=== PATIENT | male | born 1960 | race Caucasian/White ===

== ENCOUNTER 2018-05-21 14:48 | Emergency (ER) | payer MEDICAID ==
[~2018-05-21] VITALS: Ht 170.2 cm; Wt 66.3 kg
[~2018-05-21 14:48] MED LIST: CIPR250T27 PO; DAPT500V6 IV; ERTA1VIA IV; FLUC200T PO; HYDR-3241 PO; LEVO250T23 PO; LEVO750T26 PO; METR250T PO; METR500T PO; METR500T8 PO; MICA100V3 IV; MORP-52 PO; None per pt; ONDA4TAB7 PO; OXYC-302 PO; PANT40TA3 PO; SULF-169 PO
[2018-05-21] MEDS ORDERED: SODIUM CHLORIDE FLUSH 10ML SYR IVF ONE (15:30)
[2018-05-21] MEDS ORDERED: SODIUM CHLORIDE 0.9% 1,000ML IVBOLUS ONE (15:30)
[2018-05-21 15:48] LABS: BASOPHILS # (AUTO) 0.04 x10^3/uL (0-0.1); BASOPHILS % (AUTO) 1 % (0-1); EOSINOPHILS # (AUTO) 0.18 x10^3/uL (0-0.4); EOSINOPHILS % (AUTO) 3 % (1-7); LYMPHOCYTES # (AUTO) 2.54 x10^3/uL (1-3.4); LYMPHOCYTES % (AUTO) 34 % (22-44); MD NO; MEAN CORPUSCULAR HGB CONC 33.4 g/dL (33.2-36.2); MEAN CORPUSCULAR VOLUME 86.7 fL (81-97); MEAN PLATELET VOLUME 7.9 fL (7.4-10.4); MONOCYTES # (AUTO) 0.44 x10^3/uL (0.2-0.8); MONOCYTES % (AUTO) 6 % (2-9); NEUTROPHILS # (AUTO) 4.17 x10^3/uL (1.8-6.8); NEUTROPHILS % (AUTO) 57 % (42-75); PLATELET COUNT 228 x10^3/uL (130-400); RED BLOOD COUNT 5.07 x10^6/uL (4.38-5.82); RED CELL DISTRIBUTION WIDTH 13.8 % (9.4-14.8)
[2018-05-21 15:57] LABS: ALANINE AMINOTRANSFERASE 20 U/L (12-78); ALBUMIN 3.4 g/dL (3.4-5.0); ANION GAP 7 mmol/L (5-15); CALCIUM 8.8 mg/dL (8.5-10.1); CHLORIDE 112 mmol/L (98-107); CREATININE 1.19 mg/dL (0.7-1.3)
[2018-05-21 16:00] LABS: ALKALINE PHOSPHATASE 126 U/L (45-117); BILIRUBIN,TOTAL 0.4 mg/dL (0.2-1.0); TOTAL PROTEIN 7.1 g/dL (6.4-8.2)
[2018-05-21] MEDS ORDERED: OMNIPAQUE 350 MG/ML, 100ML BOTTLE ONE (17:37)
[2018-05-21 19:42] VITALS: BP 140/84
== END 2018-05-21 19:48 | disposition home or self-care (01) ==
LOC: ED 16:26
DX: K94.09 Other complications of colostomy (principal)
CPT/HCPCS: 36415; 74177; 80053; 85025; 99285; J7030; Q9967

== ENCOUNTER 2018-10-06 17:01 | Inpatient (IN) | payer MEDICAID ==
[~2018-10-06] VITALS: Ht 170.2 cm; Wt 70.2 kg
[2018-10-06] MEDS ORDERED: SODIUM CHLORIDE FLUSH 10ML SYR IVF ONE (18:00)
[2018-10-06] MEDS ORDERED: VANCOMYCIN PER PHARMACY MC PRN ×2 (18:00→21:00)
[2018-10-06] MEDS ORDERED: SODIUM CHLORIDE 0.9% 1,000ML IVBOLUS ONE (18:00)
[2018-10-06] MEDS ORDERED: VANCOMYCIN 1,200 MG in SODIUM CHLORIDE 0.9% 250 ML IV ONE (18:00)
[2018-10-06 18:21] LABS: MEAN CORPUSCULAR HEMOGLOBIN 29.3 pg (27.5-34.5); MEAN CORPUSCULAR HGB CONC 33.5 g/dL (33.2-36.2); MEAN CORPUSCULAR VOLUME 87.4 fL (81-97); MEAN PLATELET VOLUME 7.1 fL (7.4-10.4); PLATELET COUNT 606 x10^3/uL (130-400); RED BLOOD COUNT 5.19 x10^6/uL (4.38-5.82)
[2018-10-06 18:33] LABS: ALBUMIN 2.8 g/dL (3.4-5.0); ANION GAP 5 mmol/L (5-15); CALCIUM 9.2 mg/dL (8.5-10.1); CHLORIDE 105 mmol/L (98-107); CREATININE 1.13 mg/dL (0.7-1.3)
[2018-10-06 18:42] LABS: MD YES
[2018-10-06 18:44] LABS: <PLATELET ESTIMATE> INCREASED; ANISOCYTOSIS 1+; BAND#(MANUAL) 1.09 x10^3/uL; BANDS%(MANUAL) 5 % (0-7); LYMPH#(MANUAL) 1.74 x10^3/uL (1-3.4); LYMPHS% (MANUAL) 8 % (22-44); MONOS#(MANUAL) 0.87 x10^3/uL (0.3-2.7); MONOS% (MANUAL) 4 % (2-9); SEG#(MANUAL) 18.01 x10^3/uL (1.8-6.8); SEGS% (MANUAL) 83 % (42-75)
[2018-10-06 18:45] LABS: <PLT MORPHOLOGY> NORMAL PLT MORPH
[2018-10-06] MEDS ORDERED: OMNIPAQUE 350 MG/ML, 100ML BOTTLE ONE (19:15)
[2018-10-06] MEDS ORDERED: HYDROcodone/APAP 5/325 TABLET PO PRN (21:00)
[2018-10-06] MEDS ORDERED: ONDANSETRON 2MG/ML, 2ML IVPush PRN (21:00)
[2018-10-06] MEDS ORDERED: ACETAMINOPHEN 325 MG TABLET PO PRN (21:00)
[2018-10-06] MEDS: ENOXAPARIN 40 MG/0.4 ML SQ SCH (21:00)
[2018-10-06] MEDS ORDERED: morphine SULFATE 10 MG/ML, 1ML IVPush PRN (21:00)
[2018-10-06] MEDS ORDERED: hydrALAzine 20 MG/ML, 1ML IVPush PRN (21:00)
[2018-10-06] MEDS ORDERED: PHARMACOKINETIC CONSULTATION MC ONE (22:00)
[2018-10-06] MEDS ORDERED: PHARMACOKINETIC MONITORING MC PRN (22:00)
[2018-10-07 00:54] VITALS: BP 91/60
[2018-10-07] MEDS: SODIUM CHLORIDE 0.9% 1,000 ML IV SCH ×3 (01:10→16:05)
[2018-10-07] MEDS: AMPICILLIN/SULBACTAM 1,500 MG in SODIUM CHLORIDE 0.9% 50 ML IV SCH ×2 (01:10→09:00)
[2018-10-07 05:17] LABS: MICROSCOPIC NOT IND
[2018-10-07 05:19] LABS: CULTURE INDICATED? NO
[2018-10-07 05:26] LABS: BASOPHILS # (AUTO) 0.03 x10^3/uL (0-0.1); BASOPHILS % (AUTO) 0 % (0-1); EOSINOPHILS # (AUTO) 0.08 x10^3/uL (0-0.4); EOSINOPHILS % (AUTO) 1 % (1-7); LYMPHOCYTES # (AUTO) 3.08 x10^3/uL (1-3.4); LYMPHOCYTES % (AUTO) 30 % (22-44); MD NO; MEAN CORPUSCULAR HGB CONC 33.2 g/dL (33.2-36.2); MEAN CORPUSCULAR VOLUME 87.4 fL (81-97); MONOCYTES # (AUTO) 0.68 x10^3/uL (0.2-0.8); MONOCYTES % (AUTO) 7 % (2-9); NEUTROPHILS # (AUTO) 6.51 x10^3/uL (1.8-6.8); NEUTROPHILS % (AUTO) 63 % (42-75); PLATELET COUNT 516 x10^3/uL (130-400); RED CELL DISTRIBUTION WIDTH 13.3 % (9.4-14.8)
[2018-10-07 05:26] LABS: CHLORIDE 106 mmol/L (98-107)
[2018-10-07 05:34] LABS: ALANINE AMINOTRANSFERASE 14 U/L (12-78); ALBUMIN 2.3 g/dL (3.4-5.0); ALKALINE PHOSPHATASE 96 U/L (45-117); ANION GAP 10 mmol/L (5-15); BILIRUBIN,TOTAL 0.4 mg/dL (0.2-1.0); CALCIUM 8.4 mg/dL (8.5-10.1); CREATININE 1.16 mg/dL (0.7-1.3)
[2018-10-07 07:11] VITALS: BP 95/61
[2018-10-07] MEDS: VANCOMYCIN 1,200 MG in SODIUM CHLORIDE 0.9% 250 ML IV SCH ×2 (08:12→20:11)
[2018-10-07] MEDS: PIPERACILLIN/TAZO/PMX 3.375GM 50 ML IV SCH ×3 (10:30→22:11)
[2018-10-07 15:02] VITALS: BP 101/66
[2018-10-07 19:06] VITALS: BP 106/65
[2018-10-07] MEDS: ENOXAPARIN 40 MG/0.4 ML SQ SCH (20:14)
[2018-10-08] MEDS: SODIUM CHLORIDE 0.9% 1,000 ML IV SCH ×3 (01:20→17:08)
[2018-10-08 01:45] VITALS: BP 97/61
[2018-10-08] MEDS: PIPERACILLIN/TAZO/PMX 3.375GM 50 ML IV SCH ×4 (04:16→23:13)
[2018-10-08 05:36] LABS: BASOPHILS # (AUTO) 0.01 x10^3/uL (0-0.1); BASOPHILS % (AUTO) 0 % (0-1); EOSINOPHILS % (AUTO) 1 % (1-7); LYMPHOCYTES # (AUTO) 1.34 x10^3/uL (1-3.4); LYMPHOCYTES % (AUTO) 19 % (22-44); MD NO; MEAN CORPUSCULAR HEMOGLOBIN 28.9 pg (27.5-34.5); MEAN CORPUSCULAR HGB CONC 33.2 g/dL (33.2-36.2); MEAN CORPUSCULAR VOLUME 87.2 fL (81-97); MONOCYTES # (AUTO) 0.34 x10^3/uL (0.2-0.8); MONOCYTES % (AUTO) 5 % (2-9); NEUTROPHILS % (AUTO) 75 % (42-75); PLATELET COUNT 410 x10^3/uL (130-400); RED BLOOD COUNT 4.45 x10^6/uL (4.38-5.82); RED CELL DISTRIBUTION WIDTH 13.1 % (9.4-14.8)
[2018-10-08 05:48] LABS: CALCIUM 8.1 mg/dL (8.5-10.1); CHLORIDE 111 mmol/L (98-107)
[2018-10-08 05:52] LABS: ANION GAP 7 mmol/L (5-15); CREATININE 0.77 mg/dL (0.7-1.3)
[2018-10-08 07:23] VITALS: BP 97/67
[2018-10-08] MEDS: VANCOMYCIN 1,200 MG in SODIUM CHLORIDE 0.9% 250 ML IV SCH ×2 (08:07→20:05)
[2018-10-08 12:56] VITALS: BP 100/62
[2018-10-08 19:30] VITALS: BP 107/68
[2018-10-08] MEDS: ENOXAPARIN 40 MG/0.4 ML SQ SCH (20:05)
[2018-10-09] MEDS: SODIUM CHLORIDE 0.9% 1,000 ML IV SCH ×4 (01:55→23:00)
[2018-10-09 01:58] VITALS: BP 106/66
[2018-10-09] MEDS: PIPERACILLIN/TAZO/PMX 3.375GM 50 ML IV SCH ×4 (05:07→23:00)
[2018-10-09 07:03] VITALS: BP 116/77
[2018-10-09] MEDS: VANCOMYCIN 1,200 MG in SODIUM CHLORIDE 0.9% 250 ML IV SCH ×2 (08:13→19:45)
[2018-10-09 12:20] VITALS: BP 112/70
[2018-10-09 19:15] VITALS: BP 109/20
[2018-10-09] MEDS: ENOXAPARIN 40 MG/0.4 ML SQ SCH (19:45)
[2018-10-10 01:50] VITALS: BP 109/63
[2018-10-10] MEDS: PIPERACILLIN/TAZO/PMX 3.375GM 50 ML IV SCH ×2 (05:00→11:00)
[2018-10-10] MEDS: SODIUM CHLORIDE 0.9% 1,000 ML IV SCH (05:02)
[2018-10-10 07:08] VITALS: BP 105/73
[2018-10-10] MEDS: VANCOMYCIN 1,200 MG in SODIUM CHLORIDE 0.9% 250 ML IV SCH (08:00)
[2018-10-10] MEDS ORDERED: DOXY100C2 PO (08:29)
== END 2018-10-10 11:11 | disposition home or self-care (01) | DRG 602 ==
LOC: ED 18:20 → SUATTDRO 20:06 → EDIP 20:16 → 3NE 20:39
PROVIDERS: ADMIT Hospitalist; ATTEND Hospitalist
DX: L03.317 Cellulitis of buttock (principal); E43 Unspecified severe protein-calorie malnutrition; D64.9 Anemia, unspecified; F15.10 Other stimulant abuse, uncomplicated; G40.909 Epilepsy, unspecified, not intractable, without status epilepticus; G80.9 Cerebral palsy, unspecified; Z68.24 Body mass index [BMI] 24.0-24.9, adult; Z91.19 Patient's noncompliance with other medical treatment and regimen; Z93.3 Colostomy status; Z74.01 Bed confinement status
CPT/HCPCS: 36415; 74177; 80048; 80053; 80202; 81003; 82040; 83605; 83735; 84100; 84145; 85025; 87040; 90656; 96365; 96366; 99291; G0378; J2543; J3370; Q9967; J0295; J7030; J7050

== ENCOUNTER 2019-06-01 01:41 | Inpatient (IN) | payer MEDICAID ==
[~2019-06-01] VITALS: Ht 170.2 cm; Wt 76.5 kg
[~2019-06-01 01:41] MED LIST changes: +DOXY100C2 PO; +METR-90 PO; -METR500T8 PO
[2019-06-01 02:30] LABS: BASOPHILS # (AUTO) 0.03 x10^3/uL (0-0.1); BASOPHILS % (AUTO) 0 % (0-1); EOSINOPHILS # (AUTO) 0.04 x10^3/uL (0-0.4); EOSINOPHILS % (AUTO) 0 % (1-7); LYMPHOCYTES # (AUTO) 1.94 x10^3/uL (1-3.4); LYMPHOCYTES % (AUTO) 16 % (22-44); MD NO; MEAN CORPUSCULAR HEMOGLOBIN 27.9 pg (27.5-34.5); MEAN CORPUSCULAR HGB CONC 32.4 g/dL (33.2-36.2); MEAN CORPUSCULAR VOLUME 85.9 fL (81-97); MEAN PLATELET VOLUME 7.6 fL (7.4-10.4); MONOCYTES # (AUTO) 0.61 x10^3/uL (0.2-0.8); MONOCYTES % (AUTO) 5 % (2-9); NEUTROPHILS # (AUTO) 9.64 x10^3/uL (1.8-6.8); NEUTROPHILS % (AUTO) 79 % (42-75); PLATELET COUNT 269 x10^3/uL (130-400); RED BLOOD COUNT 5.84 x10^6/uL (4.38-5.82); RED CELL DISTRIBUTION WIDTH 14.3 % (9.4-14.8)
[2019-06-01] MEDS ORDERED: SODIUM CHLORIDE FLUSH 10ML SYR IVF ONE (02:30)
[2019-06-01 02:42] LABS: ALANINE AMINOTRANSFERASE 16 U/L (12-78); ALBUMIN 3.2 g/dL (3.4-5.0); ANION GAP 8 mmol/L (5-15); CALCIUM 8.7 mg/dL (8.5-10.1); CHLORIDE 108 mmol/L (98-107); CREATININE 1.31 mg/dL (0.7-1.3)
[2019-06-01 02:44] LABS: ALKALINE PHOSPHATASE 146 U/L (45-117); BILIRUBIN,TOTAL 0.7 mg/dL (0.2-1.0); TOTAL PROTEIN 7.9 g/dL (6.4-8.2)
--- NOTE | 2019-06-01 03:33 | NUR ---
GAVE PT URINE CUP FOR ORDRED UA. PT STATED, "OH, YOU'RE TRYING TO TEST ME FOR DRUGS". EXPLAINED TO PT DOC WANTS TO RUN UA NOT DRUG SCREEN. LABS AND BLOOD CULTURE DRAWN. PT STATED, "WITH ALL THIS BLOOD THEY'RE DRAWING, YOU DON'T NEED THE URINE." IV PLACED WITH ULTRASOUND. PT BACK FROM CT AT THIS TIME.
[2019-06-01] MEDS ORDERED: OMNIPAQUE 350 MG/ML, 100ML BOTTLE ONE (03:35)
--- NOTE | 2019-06-01 04:36 | NUR ---
REPORT OF PT FROM REDDY ZHONG AND ASSUMING CARE OF PT AT THIS TIME.
[2019-06-01] MEDS ORDERED: PIPERACILLIN/TAZO/PMX 3.375GM 0 ML ONE (04:48)
[2019-06-01] MEDS ORDERED: PIPERACILLIN/TAZO/PMX 3.375GM 50 ML ONE (04:49)
[2019-06-01] MEDS ORDERED: VANCOMYCIN PER PHARMACY MC PRN ×2 (05:00→05:30)
[2019-06-01] MEDS ORDERED: PIPERACILLIN/TAZO/PMX 3.375GM 50 ML IV ONE (05:00)
[2019-06-01] MEDS ORDERED: VANCOMYCIN 1,600 MG in SODIUM CHLORIDE 0.9% 250 ML IV ONE (05:00)
[2019-06-01] MEDS: PIPERACILLIN/TAZO/PMX 3.375GM 50 ML IV SCH ×3 (05:18→21:03)
[2019-06-01] MEDS ORDERED: hydrALAzine 20 MG/ML, 1ML IVPush PRN (05:30)
[2019-06-01] MEDS ORDERED: PHARMACOKINETIC MONITORING MC PRN (05:30)
[2019-06-01] MEDS ORDERED: ACETAMINOPHEN 325 MG TABLET PO PRN (05:30)
--- NOTE | 2019-06-01 06:09 | NUR ---
REPORT OF PT TO REDDY PRICE. ALL QUESTIONS ANSWERED. TECH PAGED FOR PT TRANSPORT. PT AND FAMILY VERBALIZE UNDERSTANDING OF ROOM ASSIGNMENT AND POC.
[2019-06-01 06:37] VITALS: BP 96/66
[2019-06-01 07:07] VITALS: BP 116/79
[2019-06-01] MEDS ORDERED: LIDOCAINE-MPF 1%, 5ML ONE (08:06)
[2019-06-01] MEDS ORDERED: MIDAZOLAM 1 MG/ML, 5ML ONE (08:10)
[2019-06-01] MEDS ORDERED: FENTANYL PF 100 MCG/2ML ONE (08:10)
[2019-06-01] MEDS ORDERED: VISIPAQUE 270 MG/ML, 50ML BOTTLE ONE (09:01)
[2019-06-01] MEDS: SODIUM CHLORIDE 0.9% 1,000 ML IV SCH ×3 (09:36→19:49)
[2019-06-01 14:50] VITALS: BP 102/66
[2019-06-01 16:31] LABS: MICROSCOPIC NOT IND
[2019-06-01 16:38] LABS: CULTURE INDICATED? NO
[2019-06-01 18:55] VITALS: BP 111/69
[2019-06-02 02:07] VITALS: BP 95/52
[2019-06-02] MEDS: PIPERACILLIN/TAZO/PMX 3.375GM 50 ML IV SCH ×3 (04:57→21:20)
[2019-06-02 05:19] LABS: ALBUMIN 2.4 g/dL (3.4-5.0); ANION GAP 4 mmol/L (5-15); CALCIUM 8.1 mg/dL (8.5-10.1); CHLORIDE 112 mmol/L (98-107)
[2019-06-02 05:24] LABS: ALANINE AMINOTRANSFERASE 11 U/L (12-78); ALKALINE PHOSPHATASE 108 U/L (45-117); BILIRUBIN,TOTAL 0.5 mg/dL (0.2-1.0); CREATININE 1.06 mg/dL (0.7-1.3); TOTAL PROTEIN 5.8 g/dL (6.4-8.2)
[2019-06-02] MEDS: VANCOMYCIN 1,600 MG in SODIUM CHLORIDE 0.9% 250 ML IV SCH (05:44)
[2019-06-02 06:09] LABS: BASOPHILS # (AUTO) 0.02 x10^3/uL (0-0.1); BASOPHILS % (AUTO) 0 % (0-1); EOSINOPHILS # (AUTO) 0.09 x10^3/uL (0-0.4); EOSINOPHILS % (AUTO) 2 % (1-7); LYMPHOCYTES # (AUTO) 1.58 x10^3/uL (1-3.4); LYMPHOCYTES % (AUTO) 25 % (22-44); MD NO; MEAN CORPUSCULAR HEMOGLOBIN 27.7 pg (27.5-34.5); MEAN CORPUSCULAR HGB CONC 32.4 g/dL (33.2-36.2); MEAN CORPUSCULAR VOLUME 85.6 fL (81-97); MEAN PLATELET VOLUME 7.6 fL (7.4-10.4); MONOCYTES # (AUTO) 0.67 x10^3/uL (0.2-0.8); MONOCYTES % (AUTO) 11 % (2-9); NEUTROPHILS # (AUTO) 4.01 x10^3/uL (1.8-6.8); NEUTROPHILS % (AUTO) 63 % (42-75); PLATELET COUNT 220 x10^3/uL (130-400); RED BLOOD COUNT 4.97 x10^6/uL (4.38-5.82); RED CELL DISTRIBUTION WIDTH 14.1 % (9.4-14.8)
[2019-06-02 08:00] VITALS: BP 111/61
[2019-06-02] MEDS: SODIUM CHLORIDE 0.9% 1,000 ML IV SCH (09:16)
[2019-06-02 13:35] VITALS: BP 114/68
[2019-06-02 20:28] VITALS: BP 95/62
[2019-06-03 02:00] VITALS: BP 112/70
[2019-06-03] MEDS: PIPERACILLIN/TAZO/PMX 3.375GM 50 ML IV SCH ×3 (05:00→21:46)
[2019-06-03 05:03] VITALS: BP 112/70
[2019-06-03] MEDS: VANCOMYCIN 1,600 MG in SODIUM CHLORIDE 0.9% 250 ML IV SCH (05:59)
[2019-06-03 07:53] VITALS: BP 110/72
[2019-06-03 08:59] LABS: HCT (SEDRATE) 45.6 % (39.2-51.8)
[2019-06-03 14:07] VITALS: BP 136/82
[2019-06-03] MEDS ORDERED: GADOBUTROL 10 MMOL/10 ML PFS ONE (17:29)
[2019-06-03 19:38] VITALS: BP 137/83
[2019-06-03] MEDS ORDERED: VANCOMYCIN 1,600 MG in SODIUM CHLORIDE 0.9% 250 ML IV SCH (22:00)
[2019-06-04 01:58] VITALS: BP 112/79
[2019-06-04 05:27] LABS: BASOPHILS # (AUTO) 0.04 x10^3/uL (0-0.1); BASOPHILS % (AUTO) 1 % (0-1); EOSINOPHILS # (AUTO) 0.15 x10^3/uL (0-0.4); EOSINOPHILS % (AUTO) 2 % (1-7); LYMPHOCYTES # (AUTO) 2.78 x10^3/uL (1-3.4); LYMPHOCYTES % (AUTO) 36 % (22-44); MD NO; MEAN CORPUSCULAR HEMOGLOBIN 28.6 pg (27.5-34.5); MEAN CORPUSCULAR HGB CONC 32.9 g/dL (33.2-36.2); MEAN PLATELET VOLUME 7.6 fL (7.4-10.4); MONOCYTES # (AUTO) 0.85 x10^3/uL (0.2-0.8); MONOCYTES % (AUTO) 11 % (2-9); NEUTROPHILS # (AUTO) 3.93 x10^3/uL (1.8-6.8); NEUTROPHILS % (AUTO) 51 % (42-75); PLATELET COUNT 293 x10^3/uL (130-400); RED BLOOD COUNT 5.77 x10^6/uL (4.38-5.82); RED CELL DISTRIBUTION WIDTH 13.8 % (9.4-14.8)
[2019-06-04] MEDS: PIPERACILLIN/TAZO/PMX 3.375GM 50 ML IV SCH ×3 (05:29→21:26)
[2019-06-04 05:40] LABS: ALBUMIN 2.9 g/dL (3.4-5.0); CALCIUM 9.2 mg/dL (8.5-10.1); CHLORIDE 109 mmol/L (98-107)
[2019-06-04 05:44] LABS: ALANINE AMINOTRANSFERASE 17 U/L (12-78); ALKALINE PHOSPHATASE 119 U/L (45-117); ANION GAP 6 mmol/L (5-15); BILIRUBIN,TOTAL 0.3 mg/dL (0.2-1.0); TOTAL PROTEIN 7.2 g/dL (6.4-8.2)
[2019-06-04 07:26] VITALS: BP 111/77
[2019-06-04 12:59] VITALS: BP 118/75
[2019-06-04 19:07] VITALS: BP 95/72
[2019-06-05 03:30] VITALS: BP 107/77
[2019-06-05] MEDS: PIPERACILLIN/TAZO/PMX 3.375GM 50 ML IV SCH ×2 (05:09→13:25)
[2019-06-05 07:30] VITALS: BP 115/81
[2019-06-05] MEDS ORDERED: ONDANSETRON 2MG/ML, 2ML IVPush PRN (09:30)
[2019-06-05 13:43] VITALS: BP 94/69
[2019-06-05 20:03] VITALS: BP 96/68
== END 2019-06-05 22:05 | disposition home or self-care (01) | DRG 871 ==
LOC: ED 01:57 → EDIP 04:50 → 4NOR 06:20
PROVIDERS: ADMIT Family Medicine; ATTEND Family Medicine
PROC: 0W2GX0Z Change Drainage Device in Peritoneal Cavity, External Approach (ICD-10-PCS; principal; 2019-06-01)
DX: A41.9 Sepsis, unspecified organism (principal); K65.1 Peritoneal abscess; N17.0 Acute kidney failure with tubular necrosis; T85.638A Leakage of other specified internal prosthetic devices, implants and grafts, initial encounter; E44.1 Mild protein-calorie malnutrition; T85.618A Breakdown (mechanical) of other specified internal prosthetic devices, implants and grafts, initial encounter; Y83.8 Other surgical procedures as the cause of abnormal reaction of the patient, or of later complication, without mention of misadventure at the time of the procedure; Y92.89 Other specified places as the place of occurrence of the external cause; Z68.26 Body mass index [BMI] 26.0-26.9, adult; E86.0 Dehydration; F17.210 Nicotine dependence, cigarettes, uncomplicated; G40.909 Epilepsy, unspecified, not intractable, without status epilepticus; G80.9 Cerebral palsy, unspecified; N20.0 Calculus of kidney; Z82.3 Family history of stroke; Z90.49 Acquired absence of other specified parts of digestive tract; Z93.3 Colostomy status
CPT/HCPCS: 36415; 49423; 50435; 72197; 74177; 80053; 80202; 81003; 83605; 85025; 85651; 86140; 87040; 87070; 87077; 87186; 87205; 96374; 96375; 99156; 99157; A9585; G0378; J2250; J2543; J3010; J3370; Q9966; Q9967; C1729; C1769; J7030; J7050

== ENCOUNTER 2020-02-01 08:06 | Inpatient (IN) | payer MEDICAID ==
[~2020-02-01] VITALS: Ht 172.7 cm; Wt 75.1 kg
--- NOTE | 2020-02-01 08:18 | NUR ---
PT BROUGHT IN BY [facility] FROM HOME FOR CHIEF COMPLAINT OF WORSENING ABD WOUND. SIGNIFICANT ABD HX SINCE 2011. HAD SURGERY WITH WOUND VAC PLACEMENT AT [facility] 01/01. [facility] ON [address] [address]- PT BROUGHT TO [facility]. PATIENT IS ALERT, ORIENTED, WARM AND DRY.
[2020-02-01] MEDS ORDERED: WARF5TAB PO (08:26)
[2020-02-01 08:55] LABS: BASOPHILS # (AUTO) 0.06 x10^3/uL (0-0.1); BASOPHILS % (AUTO) 0 % (0-1); EOSINOPHILS # (AUTO) 0.03 x10^3/uL (0-0.4); EOSINOPHILS % (AUTO) 0 % (1-7); LYMPHOCYTES # (AUTO) 1.41 x10^3/uL (1-3.4); LYMPHOCYTES % (AUTO) 11 % (22-44); MD NO; MEAN CORPUSCULAR HGB CONC 32.7 g/dL (33.2-36.2); MEAN CORPUSCULAR VOLUME 85.5 fL (81-97); MEAN PLATELET VOLUME 6.9 fL (7.4-10.4); MONOCYTES # (AUTO) 0.85 x10^3/uL (0.2-0.8); MONOCYTES % (AUTO) 7 % (2-9); NEUTROPHILS # (AUTO) 10.26 x10^3/uL (1.8-6.8); NEUTROPHILS % (AUTO) 81 % (42-75); PLATELET COUNT 399 x10^3/uL (130-400); RED BLOOD COUNT 4.41 x10^6/uL (4.38-5.82); RED CELL DISTRIBUTION WIDTH 16.5 % (9.4-14.8)
[2020-02-01] MEDS ORDERED: ONDANSETRON 2MG/ML, 2ML IVPush ONE (09:00)
[2020-02-01] MEDS ORDERED: SODIUM CHLORIDE FLUSH 10ML SYR IVF ONE (09:00)
[2020-02-01] MEDS ORDERED: ONDANSETRON 2MG/ML, 2ML ONE (09:01)
[2020-02-01] MEDS ORDERED: MORPHINE SULFATE 4 MG/ML, 1ML ONE ×2 (09:01→10:51)
[2020-02-01 09:06] LABS: ALANINE AMINOTRANSFERASE 23 U/L (12-78); ANION GAP 7 mmol/L (5-15); CALCIUM 8.7 mg/dL (8.5-10.1); CHLORIDE 111 mmol/L (98-107); CREATININE 0.87 mg/dL (0.7-1.3)
[2020-02-01 09:07] LABS: ALKALINE PHOSPHATASE 111 U/L (45-117); BILIRUBIN,TOTAL 0.4 mg/dL (0.2-1.0); TOTAL PROTEIN 7.3 g/dL (6.4-8.2)
[2020-02-01] MEDS: MORPHINE SULFATE 4 MG/ML, 1ML IVPush PRN ×2 (09:07→11:17)
--- NOTE | 2020-02-01 09:15 | NUR ---
SUPPLIES ORDERED, PT RESTING IN BED
[2020-02-01] MEDS ORDERED: PIPERACILLIN/TAZO/PMX 3.375GM 50 ML IV ONE (10:00)
--- NOTE | 2020-02-01 10:22 | NUR ---
[facility] HOSP AT BEDSIDE FOR EVALUATION
--- NOTE | 2020-02-01 10:57 | NUR ---
PT TO IMAGING.
[2020-02-01] MEDS ORDERED: ONDANSETRON ODT 4 MG PO PRN (11:00)
[2020-02-01] MEDS ORDERED: VANCOMYCIN PER PHARMACY MC PRN (11:00)
[2020-02-01] MEDS ORDERED: hydrALAzine 20 MG/ML, 1ML IVPush PRN (11:00)
[2020-02-01] MEDS ORDERED: ONDANSETRON 2MG/ML, 2ML IVPush PRN (11:00)
[2020-02-01] MEDS ORDERED: BACLOFEN 10 MG TABLET PO PRN (11:00)
[2020-02-01 11:01] LABS: INTERNATIONAL NORMALIZED RATIO 2.3 (0.93-1.1); PROTHROMBIN TIME 24.6 Seconds (9.6-11.5)
[2020-02-01] MEDS: NS + 20MEQ KCL 1,000 ML IV SCH ×2 (11:17→22:36)
--- NOTE | 2020-02-01 11:22 | NUR ---
report called to delia yuen
[2020-02-01] MEDS ORDERED: OMNIPAQUE 350 MG/ML, 100ML BOTTLE ONE (11:31)
[2020-02-01 11:45] VITALS: BP 106/74
[2020-02-01 11:55] VITALS: BP 105/74
[2020-02-01] MEDS: morphine SULFATE 10 MG/ML, 1ML IVPush PRN ×4 (12:09→22:54)
[2020-02-01] MEDS ORDERED: HEPARIN 5,000 UNITS/ML, 1ML IV ONE (12:30)
[2020-02-01] MEDS ORDERED: HEPARIN 5,000 UNITS/ML, 1ML IV PRN (12:30)
[2020-02-01] MEDS ORDERED: HEPARIN 25,000 UNITS/250ML PMX 250 ML IV PRN (12:30)
[2020-02-01] MEDS ORDERED: PHARMACOKINETIC MONITORING MC PRN (13:00)
[2020-02-01] MEDS ORDERED: PHARMACOKINETIC CONSULTATION MC ONE (13:00)
[2020-02-01 13:32] VITALS: BP 100/69
[2020-02-01] MEDS: VANCOMYCIN 1,400 MG in SODIUM CHLORIDE 0.9% 250 ML IV SCH (13:53)
[2020-02-01] MEDS: PIPERACILLIN/TAZO/PMX 3.375GM 50 ML IV SCH ×2 (17:08→22:58)
[2020-02-01 20:10] VITALS: BP 101/70
[2020-02-02] MEDS: VANCOMYCIN 1,400 MG in SODIUM CHLORIDE 0.9% 250 ML IV SCH ×2 (01:29→14:38)
[2020-02-02] MEDS: morphine SULFATE 10 MG/ML, 1ML IVPush PRN ×5 (02:13→21:29)
[2020-02-02 04:59] VITALS: BP 94/61
[2020-02-02 05:51] LABS: BASOPHILS # (AUTO) 0.02 x10^3/uL (0-0.1); BASOPHILS % (AUTO) 0 % (0-1); EOSINOPHILS # (AUTO) 0.07 x10^3/uL (0-0.4); EOSINOPHILS % (AUTO) 1 % (1-7); LYMPHOCYTES # (AUTO) 0.58 x10^3/uL (1-3.4); LYMPHOCYTES % (AUTO) 8 % (22-44); MD NO; MEAN CORPUSCULAR HEMOGLOBIN 27.9 pg (27.5-34.5); MEAN CORPUSCULAR HGB CONC 32.2 g/dL (33.2-36.2); MEAN CORPUSCULAR VOLUME 86.4 fL (81-97); MEAN PLATELET VOLUME 7.1 fL (7.4-10.4); MONOCYTES # (AUTO) 0.55 x10^3/uL (0.2-0.8); MONOCYTES % (AUTO) 7 % (2-9); NEUTROPHILS # (AUTO) 6.39 x10^3/uL (1.8-6.8); NEUTROPHILS % (AUTO) 84 % (42-75); PLATELET COUNT 362 x10^3/uL (130-400); RED CELL DISTRIBUTION WIDTH 16.6 % (9.4-14.8)
[2020-02-02 05:53] LABS: ANION GAP 9 mmol/L (5-15); CALCIUM 8.4 mg/dL (8.5-10.1); CHLORIDE 114 mmol/L (98-107); CREATININE 0.87 mg/dL (0.7-1.3)
[2020-02-02] MEDS: PIPERACILLIN/TAZO/PMX 3.375GM 50 ML IV SCH ×3 (06:01→18:03)
[2020-02-02 08:42] VITALS: BP 100/69
[2020-02-02 12:48] VITALS: BP 96/66
[2020-02-02 12:52] VITALS: BP 95/70
[2020-02-02] MEDS: SODIUM CHLORIDE 0.9% 1,000 ML IV SCH ×2 (13:09→23:00)
[2020-02-02] MEDS: NS + 20MEQ KCL 1,000 ML IV SCH (13:18)
[2020-02-02] MEDS ORDERED: TPN PER PHARMACY MC PRN (14:00)
[2020-02-02 16:34] VITALS: BP 95/70
[2020-02-02] MEDS: FILTER, DISP 1.2 MICRON FOR TPN/PVN IV PRN (16:48)
[2020-02-02] MEDS ORDERED: [UNRECOGNIZED DRUG - OTHER] IV SCH (17:00)
[2020-02-02] MEDS ORDERED: DEXTROSE 50%, 50ML SYRINGE IVPush PRN (17:00)
[2020-02-02] MEDS ORDERED: DEXTROSE 10% 500 ML IV PRN (17:00)
[2020-02-02] MEDS ORDERED: DEXTROSE 70% IV SCH (17:00)
[2020-02-02] MEDS ORDERED: FAT EMUL IV SCH (17:00)
[2020-02-02] MEDS ORDERED: SMOF TPN IV SCH (17:00)
[2020-02-02] MEDS ORDERED: PVN PER PHARMACY IV SCH (17:00)
[2020-02-02] MEDS ORDERED: AMINO ACID 10% IV SCH (17:00)
[2020-02-02 19:38] VITALS: BP 96/63
[2020-02-03] MEDS: PIPERACILLIN/TAZO/PMX 3.375GM 50 ML IV SCH ×4 (00:14→20:16)
[2020-02-03] MEDS: morphine SULFATE 10 MG/ML, 1ML IVPush PRN ×6 (01:10→21:19)
[2020-02-03 01:20] LABS: BASOPHILS % (AUTO) 0 % (0-1); EOSINOPHILS # (AUTO) 0.05 x10^3/uL (0-0.4); EOSINOPHILS % (AUTO) 1 % (1-7); LYMPHOCYTES # (AUTO) 1.12 x10^3/uL (1-3.4); LYMPHOCYTES % (AUTO) 17 % (22-44); MD NO; MEAN CORPUSCULAR HEMOGLOBIN 27.4 pg (27.5-34.5); MEAN CORPUSCULAR HGB CONC 32.4 g/dL (33.2-36.2); MEAN CORPUSCULAR VOLUME 84.7 fL (81-97); MEAN PLATELET VOLUME 7.2 fL (7.4-10.4); MONOCYTES # (AUTO) 0.39 x10^3/uL (0.2-0.8); MONOCYTES % (AUTO) 6 % (2-9); NEUTROPHILS # (AUTO) 5.12 x10^3/uL (1.8-6.8); NEUTROPHILS % (AUTO) 77 % (42-75); PLATELET COUNT 383 x10^3/uL (130-400); RED BLOOD COUNT 3.86 x10^6/uL (4.38-5.82); RED CELL DISTRIBUTION WIDTH 16.4 % (9.4-14.8)
[2020-02-03 01:28] LABS: ALANINE AMINOTRANSFERASE 17 U/L (12-78); ALBUMIN 1.9 g/dL (3.4-5.0); ANION GAP 8 mmol/L (5-15); CALCIUM 8.5 mg/dL (8.5-10.1); CHLORIDE 112 mmol/L (98-107); CREATININE 0.89 mg/dL (0.7-1.3)
[2020-02-03 01:30] LABS: ALKALINE PHOSPHATASE 83 U/L (45-117); BILIRUBIN,TOTAL 0.3 mg/dL (0.2-1.0); TOTAL PROTEIN 6.6 g/dL (6.4-8.2)
[2020-02-03 02:47] VITALS: BP 89/60
[2020-02-03] MEDS: VANCOMYCIN 1,400 MG in SODIUM CHLORIDE 0.9% 250 ML IV SCH ×2 (04:14→22:27)
[2020-02-03] MEDS: INSULIN REGULAR MEDIUM DOSE Q6H X 48HRS SQ-INSULIN SCH ×3 (06:00→12:00)
[2020-02-03 09:00] VITALS: BP 100/65
[2020-02-03] MEDS: SODIUM CHLORIDE 0.9% 1,000 ML IV SCH (09:00)
[2020-02-03 12:36] VITALS: BP 102/69
[2020-02-03] MEDS ORDERED: FAT EMUL IV SCH ×2 (17:00)
[2020-02-03] MEDS ORDERED: TPN PER PHARMACY IV SCH (17:00)
[2020-02-03] MEDS ORDERED: DEXTROSE 70% IV SCH ×2 (17:00)
[2020-02-03] MEDS ORDERED: AMINO ACID 10% IV SCH ×2 (17:00)
[2020-02-03] MEDS ORDERED: [UNRECOGNIZED DRUG - OTHER] IV SCH (17:00)
[2020-02-03] MEDS ORDERED: SMOF TPN IV SCH ×2 (17:00)
[2020-02-03] MEDS ORDERED: [UNRECOGNIZED DRUG - OTHER] IV SCH (17:00)
[2020-02-03] MEDS: INSULIN REGULAR 100 UNITS/ML, 3ML VIAL SQ-INSULIN SCH ×2 (17:16→21:00)
[2020-02-03] MEDS: FILTER, DISP 1.2 MICRON FOR TPN/PVN IV PRN (17:16)
[2020-02-03 21:33] VITALS: BP 95/60
[2020-02-04] MEDS: SODIUM CHLORIDE 0.9% 1,000 ML IV SCH ×2 (00:05→09:02)
[2020-02-04 00:08] VITALS: BP 95/62
[2020-02-04] MEDS: PIPERACILLIN/TAZO/PMX 3.375GM 50 ML IV SCH ×4 (01:33→19:49)
[2020-02-04] MEDS: morphine SULFATE 10 MG/ML, 1ML IVPush PRN ×6 (06:11→23:36)
[2020-02-04 06:27] LABS: ALANINE AMINOTRANSFERASE 12 U/L (12-78); CALCIUM 7.1 mg/dL (8.5-10.1); CHLORIDE 119 mmol/L (98-107)
[2020-02-04 06:32] LABS: ALBUMIN 1.6 g/dL (3.4-5.0); ALKALINE PHOSPHATASE 65 U/L (45-117); ANION GAP 5 mmol/L (5-15); BILIRUBIN,TOTAL 0.2 mg/dL (0.2-1.0); PREALBUMIN 9.9 mg/dL (20.0-40.0); TOTAL PROTEIN 5.2 g/dL (6.4-8.2)
[2020-02-04] MEDS: INSULIN REGULAR 100 UNITS/ML, 3ML VIAL SQ-INSULIN SCH ×4 (06:51→20:30)
[2020-02-04] MEDS ORDERED: POTASSIUM CHLORIDE 20 MEQ in SODIUM CHLORIDE 0.9% 250 ML IV ONE (07:00)
[2020-02-04] MEDS ORDERED: CALCIUM GLUCONATE 4.6 MEQ in SODIUM CHLORIDE 0.9% 100 ML IV ONE (07:00)
[2020-02-04 07:06] VITALS: BP 95/60
[2020-02-04] MEDS: ASCORBIC ACID 500 MG TABLET PO SCH ×2 (07:42→16:43)
[2020-02-04] MEDS: MULTIVITS,STRESS FORMULA 1 TABLET PO SCH (07:42)
[2020-02-04 12:17] VITALS: BP 94/60
[2020-02-04] MEDS ORDERED: CHOLECALCIFEROL 400 UNITS/ML ORAL SOL PO SCH (16:30)
[2020-02-04] MEDS: VANCOMYCIN 1,400 MG in SODIUM CHLORIDE 0.9% 250 ML IV SCH (16:42)
[2020-02-04] MEDS: FILTER, DISP 1.2 MICRON FOR TPN/PVN IV PRN (16:53)
[2020-02-04] MEDS ORDERED: DEXTROSE 70% IV SCH ×2 (17:00)
[2020-02-04] MEDS ORDERED: [UNRECOGNIZED DRUG - OTHER] IV SCH (17:00)
[2020-02-04] MEDS ORDERED: SMOF TPN IV SCH ×2 (17:00)
[2020-02-04] MEDS ORDERED: [UNRECOGNIZED DRUG - OTHER] IV SCH (17:00)
[2020-02-04] MEDS ORDERED: AMINO ACID 10% IV SCH ×2 (17:00)
[2020-02-04] MEDS ORDERED: FAT EMUL IV SCH ×2 (17:00)
[2020-02-04] MEDS: APIXABAN 5 MG TABLET PO SCH (17:53)
[2020-02-04 18:56] VITALS: BP 102/69
[2020-02-05] MEDS: SODIUM CHLORIDE 0.9% 1,000 ML IV SCH ×3 (01:11→23:44)
[2020-02-05] MEDS: PIPERACILLIN/TAZO/PMX 3.375GM 50 ML IV SCH ×4 (01:12→20:01)
[2020-02-05] MEDS: APIXABAN 5 MG TABLET PO SCH ×3 (01:13→20:01)
[2020-02-05 03:14] VITALS: BP 114/70
[2020-02-05] MEDS: morphine SULFATE 10 MG/ML, 1ML IVPush PRN ×7 (03:18→23:44)
[2020-02-05 05:51] LABS: BASOPHILS # (AUTO) 0.01 x10^3/uL (0-0.1); BASOPHILS % (AUTO) 0 % (0-1); EOSINOPHILS # (AUTO) 0.25 x10^3/uL (0-0.4); EOSINOPHILS % (AUTO) 3 % (1-7); LYMPHOCYTES # (AUTO) 1.21 x10^3/uL (1-3.4); LYMPHOCYTES % (AUTO) 15 % (22-44); MD NO; MEAN CORPUSCULAR HEMOGLOBIN 27.6 pg (27.5-34.5); MEAN CORPUSCULAR HGB CONC 32.3 g/dL (33.2-36.2); MEAN CORPUSCULAR VOLUME 85.4 fL (81-97); MEAN PLATELET VOLUME 7.3 fL (7.4-10.4); MONOCYTES % (AUTO) 6 % (2-9); NEUTROPHILS # (AUTO) 5.97 x10^3/uL (1.8-6.8); NEUTROPHILS % (AUTO) 75 % (42-75); PLATELET COUNT 352 x10^3/uL (130-400); RED BLOOD COUNT 3.59 x10^6/uL (4.38-5.82); RED CELL DISTRIBUTION WIDTH 16.5 % (9.4-14.8)
[2020-02-05 05:54] LABS: ANION GAP 7 mmol/L (5-15); CALCIUM 8.3 mg/dL (8.5-10.1); CHLORIDE 113 mmol/L (98-107); CREATININE 1.08 mg/dL (0.7-1.3)
[2020-02-05] MEDS: INSULIN REGULAR 100 UNITS/ML, 3ML VIAL SQ-INSULIN SCH ×4 (07:00→20:03)
[2020-02-05] MEDS: MULTIVITS,STRESS FORMULA 1 TABLET PO SCH (07:43)
[2020-02-05] MEDS: ASCORBIC ACID 500 MG TABLET PO SCH ×2 (07:43→17:43)
[2020-02-05 08:17] VITALS: BP 97/64
[2020-02-05] MEDS: VANCOMYCIN 1,400 MG in SODIUM CHLORIDE 0.9% 250 ML IV SCH (10:35)
[2020-02-05 13:37] VITALS: BP 111/74
[2020-02-05] MEDS ORDERED: [UNRECOGNIZED DRUG - OTHER] IV SCH (17:00)
[2020-02-05] MEDS ORDERED: FAT EMUL IV SCH (17:00)
[2020-02-05] MEDS ORDERED: DEXTROSE 70% IV SCH (17:00)
[2020-02-05] MEDS ORDERED: AMINO ACID 10% IV SCH (17:00)
[2020-02-05] MEDS ORDERED: SMOF TPN IV SCH (17:00)
[2020-02-05] MEDS: CHOLECALCIFEROL 400 UNITS TABLET PO SCH (17:43)
[2020-02-05] MEDS: FILTER, DISP 1.2 MICRON FOR TPN/PVN IV PRN (17:44)
[2020-02-05 19:54] VITALS: BP 130/76
[2020-02-06 01:26] VITALS: BP 97/65
[2020-02-06] MEDS: PIPERACILLIN/TAZO/PMX 3.375GM 50 ML IV SCH ×4 (02:04→20:29)
[2020-02-06] MEDS: morphine SULFATE 10 MG/ML, 1ML IVPush PRN ×7 (03:07→23:18)
[2020-02-06] MEDS: VANCOMYCIN 1,400 MG in SODIUM CHLORIDE 0.9% 250 ML IV SCH ×2 (04:35→22:23)
[2020-02-06 05:18] LABS: ANION GAP 6 mmol/L (5-15); CALCIUM 8.4 mg/dL (8.5-10.1); CHLORIDE 109 mmol/L (98-107)
[2020-02-06 05:19] LABS: CREATININE 1.07 mg/dL (0.7-1.3)
[2020-02-06] MEDS ORDERED: INSULIN REGULAR MEDIUM DOSE QDAY SQ-INSULIN SCH (06:00)
[2020-02-06] MEDS: INSULIN REGULAR 100 UNITS/ML, 3ML VIAL SQ-INSULIN SCH ×4 (07:00→20:11)
[2020-02-06] MEDS: MULTIVITS,STRESS FORMULA 1 TABLET PO SCH (07:54)
[2020-02-06] MEDS: APIXABAN 5 MG TABLET PO SCH ×2 (07:54→20:16)
[2020-02-06] MEDS: ASCORBIC ACID 500 MG TABLET PO SCH ×2 (07:54→16:48)
[2020-02-06 08:02] VITALS: BP 105/70
[2020-02-06] MEDS: SODIUM CHLORIDE 0.9% 1,000 ML IV SCH ×2 (10:37→20:29)
[2020-02-06 12:58] VITALS: BP 110/75
[2020-02-06] MEDS: CHOLECALCIFEROL 400 UNITS TABLET PO SCH (16:48)
[2020-02-06] MEDS ORDERED: DEXTROSE 70% IV SCH (17:00)
[2020-02-06] MEDS ORDERED: AMINO ACID 10% IV SCH (17:00)
[2020-02-06] MEDS ORDERED: FAT EMUL IV SCH (17:00)
[2020-02-06] MEDS ORDERED: [UNRECOGNIZED DRUG - OTHER] IV SCH (17:00)
[2020-02-06] MEDS ORDERED: SMOF TPN IV SCH (17:00)
[2020-02-06 19:28] VITALS: BP 102/76
[2020-02-07 00:33] VITALS: BP 100/66
[2020-02-07] MEDS: morphine SULFATE 10 MG/ML, 1ML IVPush PRN ×7 (02:26→21:45)
[2020-02-07] MEDS: PIPERACILLIN/TAZO/PMX 3.375GM 50 ML IV SCH ×2 (02:26→08:05)
[2020-02-07 05:32] LABS: ANION GAP 7 mmol/L (5-15); CALCIUM 8.7 mg/dL (8.5-10.1); CHLORIDE 108 mmol/L (98-107); CREATININE 0.95 mg/dL (0.7-1.3)
[2020-02-07 06:47] VITALS: BP 101/68
[2020-02-07] MEDS: INSULIN REGULAR 100 UNITS/ML, 3ML VIAL SQ-INSULIN SCH ×4 (07:00→20:18)
[2020-02-07] MEDS: MULTIVITS,STRESS FORMULA 1 TABLET PO SCH (08:05)
[2020-02-07] MEDS: APIXABAN 5 MG TABLET PO SCH ×2 (08:06→20:18)
[2020-02-07] MEDS: ASCORBIC ACID 500 MG TABLET PO SCH ×2 (08:06→17:38)
[2020-02-07] MEDS: SODIUM CHLORIDE 0.9% 1,000 ML IV SCH ×2 (10:02→20:18)
[2020-02-07 13:35] VITALS: BP 95/64
[2020-02-07] MEDS ORDERED: SMOF TPN IV SCH (17:00)
[2020-02-07] MEDS ORDERED: [UNRECOGNIZED DRUG - OTHER] IV SCH (17:00)
[2020-02-07] MEDS ORDERED: DEXTROSE 70% IV SCH (17:00)
[2020-02-07] MEDS ORDERED: AMINO ACID 10% IV SCH (17:00)
[2020-02-07] MEDS ORDERED: FAT EMUL IV SCH (17:00)
[2020-02-07] MEDS: CHOLECALCIFEROL 400 UNITS TABLET PO SCH (17:38)
[2020-02-07 19:11] VITALS: BP 104/71
[2020-02-08 00:23] VITALS: BP 107/72
[2020-02-08] MEDS: morphine SULFATE 10 MG/ML, 1ML IVPush PRN ×8 (00:56→23:46)
[2020-02-08] MEDS: SODIUM CHLORIDE 0.9% 1,000 ML IV SCH ×2 (05:46→16:19)
[2020-02-08 06:27] LABS: ANION GAP 7 mmol/L (5-15); CALCIUM 8.3 mg/dL (8.5-10.1); CHLORIDE 110 mmol/L (98-107); CREATININE 0.83 mg/dL (0.7-1.3)
[2020-02-08] MEDS: INSULIN REGULAR 100 UNITS/ML, 3ML VIAL SQ-INSULIN SCH ×4 (07:00→19:56)
[2020-02-08 07:11] VITALS: BP 102/70
[2020-02-08] MEDS: ASCORBIC ACID 500 MG TABLET PO SCH ×2 (07:35→16:30)
[2020-02-08] MEDS: MULTIVITS,STRESS FORMULA 1 TABLET PO SCH (07:35)
[2020-02-08] MEDS: APIXABAN 5 MG TABLET PO SCH ×2 (07:35→19:56)
[2020-02-08 14:06] VITALS: BP 116/77
[2020-02-08] MEDS: CHOLECALCIFEROL 400 UNITS TABLET PO SCH (16:30)
[2020-02-08] MEDS ORDERED: AMINO ACID 10% IV SCH (17:00)
[2020-02-08] MEDS ORDERED: [UNRECOGNIZED DRUG - OTHER] IV SCH (17:00)
[2020-02-08] MEDS ORDERED: FAT EMUL IV SCH (17:00)
[2020-02-08] MEDS ORDERED: DEXTROSE 70% IV SCH (17:00)
[2020-02-08] MEDS ORDERED: SMOF TPN IV SCH (17:00)
[2020-02-08 19:00] VITALS: BP 112/75
[2020-02-09 01:21] VITALS: BP 110/71
[2020-02-09] MEDS: SODIUM CHLORIDE 0.9% 1,000 ML IV SCH ×3 (01:38→22:17)
[2020-02-09] MEDS: morphine SULFATE 10 MG/ML, 1ML IVPush PRN ×7 (02:59→22:17)
[2020-02-09 06:13] LABS: ANION GAP 5 mmol/L (5-15); CALCIUM 8.8 mg/dL (8.5-10.1); CHLORIDE 111 mmol/L (98-107); CREATININE 0.77 mg/dL (0.7-1.3)
[2020-02-09 06:48] VITALS: BP 109/74
[2020-02-09] MEDS: INSULIN REGULAR 100 UNITS/ML, 3ML VIAL SQ-INSULIN SCH ×4 (07:00→21:00)
[2020-02-09] MEDS: MULTIVITS,STRESS FORMULA 1 TABLET PO SCH (09:08)
[2020-02-09] MEDS: ASCORBIC ACID 500 MG TABLET PO SCH ×2 (09:08→15:52)
[2020-02-09] MEDS: APIXABAN 5 MG TABLET PO SCH ×2 (09:08→21:26)
[2020-02-09 13:00] VITALS: BP 111/74
[2020-02-09] MEDS: CHOLECALCIFEROL 400 UNITS TABLET PO SCH (15:53)
[2020-02-09] MEDS ORDERED: FAT EMUL IV SCH (17:00)
[2020-02-09] MEDS ORDERED: SMOF TPN IV SCH (17:00)
[2020-02-09] MEDS ORDERED: DEXTROSE 70% IV SCH (17:00)
[2020-02-09] MEDS ORDERED: AMINO ACID 10% IV SCH (17:00)
[2020-02-09] MEDS ORDERED: [UNRECOGNIZED DRUG - OTHER] IV SCH (17:00)
[2020-02-09 20:06] VITALS: BP 103/70
[2020-02-10 01:19] VITALS: BP 116/78
[2020-02-10] MEDS: morphine SULFATE 10 MG/ML, 1ML IVPush PRN ×6 (01:22→21:36)
[2020-02-10] MEDS: INSULIN REGULAR 100 UNITS/ML, 3ML VIAL SQ-INSULIN SCH ×4 (07:00→21:37)
[2020-02-10 07:43] VITALS: BP 125/79
[2020-02-10] MEDS: SODIUM CHLORIDE 0.9% 1,000 ML IV SCH ×2 (08:45→18:08)
[2020-02-10] MEDS: ASCORBIC ACID 500 MG TABLET PO SCH ×2 (08:46→18:10)
[2020-02-10] MEDS: MULTIVITS,STRESS FORMULA 1 TABLET PO SCH (08:46)
[2020-02-10] MEDS: APIXABAN 5 MG TABLET PO SCH (08:46)
[2020-02-10 09:01] LABS: BASOPHILS # (AUTO) 0.03 x10^3/uL (0-0.1); BASOPHILS % (AUTO) 1 % (0-1); EOSINOPHILS # (AUTO) 0.27 x10^3/uL (0-0.4); EOSINOPHILS % (AUTO) 5 % (1-7); LYMPHOCYTES # (AUTO) 2.13 x10^3/uL (1-3.4); LYMPHOCYTES % (AUTO) 35 % (22-44); MD NO; MEAN CORPUSCULAR HEMOGLOBIN 27.9 pg (27.5-34.5); MEAN CORPUSCULAR HGB CONC 32.3 g/dL (33.2-36.2); MEAN CORPUSCULAR VOLUME 86.4 fL (81-97); MEAN PLATELET VOLUME 7.9 fL (7.4-10.4); MONOCYTES % (AUTO) 8 % (2-9); NEUTROPHILS # (AUTO) 3.15 x10^3/uL (1.8-6.8); NEUTROPHILS % (AUTO) 52 % (42-75); PLATELET COUNT 363 x10^3/uL (130-400); RED BLOOD COUNT 4.01 x10^6/uL (4.38-5.82); RED CELL DISTRIBUTION WIDTH 16.9 % (9.4-14.8)
[2020-02-10 09:10] LABS: ANION GAP 6 mmol/L (5-15); CALCIUM 8.8 mg/dL (8.5-10.1); CHLORIDE 112 mmol/L (98-107)
[2020-02-10 09:13] LABS: CREATININE 0.81 mg/dL (0.7-1.3)
[2020-02-10 13:13] VITALS: BP 129/85
[2020-02-10] MEDS ORDERED: FAT EMUL IV SCH (17:00)
[2020-02-10] MEDS ORDERED: DEXTROSE 70% IV SCH (17:00)
[2020-02-10] MEDS ORDERED: SMOF TPN IV SCH (17:00)
[2020-02-10] MEDS ORDERED: [UNRECOGNIZED DRUG - OTHER] IV SCH (17:00)
[2020-02-10] MEDS ORDERED: AMINO ACID 10% IV SCH (17:00)
[2020-02-10] MEDS: CHOLECALCIFEROL 400 UNITS TABLET PO SCH (18:09)
[2020-02-10] MEDS: FILTER, DISP 1.2 MICRON FOR TPN/PVN IV PRN (18:10)
[2020-02-10 19:05] VITALS: BP 116/79
[2020-02-11 00:28] VITALS: BP 110/73
[2020-02-11] MEDS: morphine SULFATE 10 MG/ML, 1ML IVPush PRN ×5 (02:02→15:58)
[2020-02-11] MEDS: SODIUM CHLORIDE 0.9% 1,000 ML IV SCH ×2 (04:01→14:14)
[2020-02-11 05:33] LABS: CHLORIDE 110 mmol/L (98-107)
[2020-02-11 05:39] LABS: ALANINE AMINOTRANSFERASE 27 U/L (12-78); ALBUMIN 2.3 g/dL (3.4-5.0); ALKALINE PHOSPHATASE 100 U/L (45-117); ANION GAP 6 mmol/L (5-15); BILIRUBIN,TOTAL 0.3 mg/dL (0.2-1.0); CALCIUM 8.5 mg/dL (8.5-10.1); CREATININE 0.68 mg/dL (0.7-1.3); TOTAL PROTEIN 6.6 g/dL (6.4-8.2); TRIGLYCERIDES 185 mg/dL (50-200)
[2020-02-11] MEDS: INSULIN REGULAR 100 UNITS/ML, 3ML VIAL SQ-INSULIN SCH ×2 (07:00→11:00)
[2020-02-11 07:24] VITALS: BP 109/73
[2020-02-11] MEDS: ASCORBIC ACID 500 MG TABLET PO SCH (09:38)
[2020-02-11] MEDS: MULTIVITS,STRESS FORMULA 1 TABLET PO SCH (09:38)
[2020-02-11] MEDS ORDERED: CHOL400T2 PO (10:38)
[2020-02-11] MEDS ORDERED: INSU100V5 SQ-INSULIN (10:38)
[2020-02-11] MEDS ORDERED: SODI20VI2 IV (10:38)
[2020-02-11] MEDS ORDERED: ASCO500T6 PO (10:38)
[2020-02-11] MEDS ORDERED: MULT1TAB76 PO (10:38)
[2020-02-11] MEDS ORDERED: APIX5TAB PO (10:38)
[2020-02-11] MEDS ORDERED: MORP10VI10 IVPush (10:38)
[2020-02-11] MEDS ORDERED: TRAM50TA2 PO (11:37)
[2020-02-11 12:12] VITALS: BP 116/81
[2020-02-11] MEDS ORDERED: FAT EMUL IV SCH (17:00)
[2020-02-11] MEDS ORDERED: DEXTROSE 70% IV SCH (17:00)
[2020-02-11] MEDS ORDERED: AMINO ACID 10% IV SCH (17:00)
[2020-02-11] MEDS ORDERED: [UNRECOGNIZED DRUG - OTHER] IV SCH (17:00)
[2020-02-11] MEDS ORDERED: SMOF TPN IV SCH (17:00)
[2020-02-11] MEDS ORDERED: APIXABAN 5 MG TABLET PO SCH (21:00)
== END 2020-02-11 16:08 | DRG 720 ==
LOC: ED 09:19 → SUATTDRO 10:19 → EDIP 11:40 → 3N 11:43
PROVIDERS: ADMIT Hospitalist; ATTEND Internal Medicine Infectious Disease
PROC: 02HV33Z Insertion of Infusion Device into Superior Vena Cava, Percutaneous Approach (ICD-10-PCS; principal; 2020-02-03)
PROC: B5181ZA Fluoroscopy of Superior Vena Cava using Low Osmolar Contrast, Guidance (ICD-10-PCS; 2020-02-03)
PROC: B548ZZA Ultrasonography of Superior Vena Cava, Guidance (ICD-10-PCS; 2020-02-03)
DX: A41.9 Sepsis, unspecified organism (principal); K65.1 Peritoneal abscess; K63.2 Fistula of intestine; D68.59 Other primary thrombophilia; D64.9 Anemia, unspecified; B96.1 Klebsiella pneumoniae [K. pneumoniae] as the cause of diseases classified elsewhere; F17.200 Nicotine dependence, unspecified, uncomplicated; G40.909 Epilepsy, unspecified, not intractable, without status epilepticus; G80.9 Cerebral palsy, unspecified; L03.311 Cellulitis of abdominal wall; Z79.01 Long term (current) use of anticoagulants; Z86.14 Personal history of Methicillin resistant Staphylococcus aureus infection; Z86.711 Personal history of pulmonary embolism; Z86.718 Personal history of other venous thrombosis and embolism; Z87.442 Personal history of urinary calculi; Z91.19 Patient's noncompliance with other medical treatment and regimen; Z93.3 Colostomy status
CPT/HCPCS: 36415; 36573; 74177; 80048; 80053; 80202; 82962; 83690; 83735; 84100; 84134; 84478; 85025; 85520; 85610; 87070; 87147; 87186; 87205; 93005; 96365; 96375; 96376; 99285; G0378; J0610; J2405; J2543; J3370; J3475; J3480; Q9967; C1751; J2270; J7030; J7050